=== PATIENT | male | born 1965 | race Caucasian/White ===

== ENCOUNTER → 2017-06-29 | Outpatient (CLI) | payer BC, SELFPAY | PROVIDERS: Visit Provider Physician Assistant | DX: E03.9 Hypothyroidism, unspecified (principal); R73.01 Impaired fasting glucose; I10 Essential (primary) hypertension; E78.2 Mixed hyperlipidemia | CPT/HCPCS: 36415; 80053; 80061; 83036; 84443 ==

== ENCOUNTER → 2017-07-28 07:58 | Outpatient (CLI) | payer BC, SELFPAY ==
[2017-07-28 09:42] LABS: Hemoglobin A1C 6.7 % (0.0-7.0)
[2017-07-28 09:57] LABS: Glucose,Fasting 135 mg/dL (60-105)
== END ==
PROVIDERS: PCP Physician Assistant; Visit Provider Physician Assistant
DX: R73.01 Impaired fasting glucose (principal)
CPT/HCPCS: 36415; 82947; 83036

== ENCOUNTER → 2017-12-29 08:21 | Outpatient (CLI) | payer BC, SELFPAY ==
[2017-12-29 09:09] LABS: Hemoglobin A1C 6.3 % (0.0-7.0)
[2017-12-29 09:50] LABS: Alanine Aminotransferase 37 U/L (12-78); Albumin Level 3.9 gm/dL (3.4-5.0); Albumin/Globulin Ratio 1.3 (1.1-1.8); Alkaline Phosphatase 90 U/L (46-116); Anion Gap 8.9 mEq/L (5-15); Aspartate Amino Transferase 33 U/L (15-37); Bilirubin,Total 1.3 mg/dL (0.2-1.0); Blood Urea Nitrogen 20 mg/dL (7-18); Calcium 8.9 mg/dL (8.5-10.1); Carbon Dioxide 30 mmol/L (21.0-32.0); Chloride 109 mmol/L (98-107); Chol/HDL Ratio 3.9 (1-3.5); Cholesterol 134 mg/dL (140-200); Creatinine,Serum 1.12 mg/dL (0.70-1.30); Estimated Glomerular Filt Rate 69 ml/min (>60); GFR (African American) 83 ML/MIN (>60); Globulin 2.9 gm/dl (1.3-3.2); Glucose 131 mg/dL (74-106); HDL Cholesterol 34 mg/dL (27-67); LDL Cholesterol 71 mg/dL (0-130); Potassium 4.9 mmoL/L (3.5-5.1); Sodium 143 mmol/L (136-145); Thyroid Stimulating Hormone 1.63 uIU/ml (0.358-3.740); Total Protein,Serum 6.8 gm/dL (6.4-8.2); Triglycerides 144 mg/dL (30-200); VLDL Cholesterol 29 mg/dL (0-40)
== END ==
PROVIDERS: Visit Provider Family Medicine
DX: E03.9 Hypothyroidism, unspecified (principal); I10 Essential (primary) hypertension; R73.01 Impaired fasting glucose
CPT/HCPCS: 36415; 80053; 80061; 83036; 84436; 84443

== ENCOUNTER → 2019-05-03 09:35 | Outpatient (CLI) | payer BC, SELFPAY ==
[2019-05-03 10:42] LABS: Hemoglobin A1C 8.9 % (0.0-7.0)
[2019-05-03 11:24] LABS: Alanine Aminotransferase 32 U/L (12-78); Albumin Level 3.9 gm/dL (3.4-5.0); Albumin/Globulin Ratio 1.3 (1.1-1.8); Alkaline Phosphatase 148 U/L (46-116); Anion Gap 11.8 mEq/L (5-15); Aspartate Amino Transferase 36 U/L (15-37); Bilirubin,Total 1.3 mg/dL (0.2-1.0); Blood Urea Nitrogen 16 mg/dL (7-18); Calcium 8.8 mg/dL (8.5-10.1); Carbon Dioxide 28 mmol/L (21.0-32.0); Chloride 102 mmol/L (98-107); Chol/HDL Ratio 4.1 (1-3.5); Cholesterol 147 mg/dL (140-200); Creatinine,Serum 1.07 mg/dL (0.70-1.30); Estimated Glomerular Filt Rate 72 ml/min (>60); Free T4 (Free Thyroxine) 1.05 ng/dl (0.76-1.46); GFR (African American) 87 ML/MIN (>60); Globulin 3.1 gm/dl (1.3-3.2); Glucose 189 mg/dL (74-106); HDL Cholesterol 36 mg/dL (27-67); LDL Cholesterol 77 mg/dL (0-130); Potassium 4.8 mmoL/L (3.5-5.1); Sodium 137 mmol/L (136-145); Triglycerides 171 mg/dL (30-200); VLDL Cholesterol 34 mg/dL (0-40)
== END ==
PROVIDERS: Visit Provider Family Medicine
DX: R73.01 Impaired fasting glucose (principal); E03.9 Hypothyroidism, unspecified; E78.2 Mixed hyperlipidemia; I10 Essential (primary) hypertension
CPT/HCPCS: 36415; 80053; 80061; 83036; 84439; 84443

== ENCOUNTER → 2019-09-17 06:11 | Outpatient (CLI) | payer BC, SELFPAY ==
--- NOTE | 2019-09-17 | CA_ITS ---
APPROVED REPORT Technologist: Sofiya Lane, Ht: 5 ft 10 in Wt: 230 lbs BSA: 2.21 m2 HR: 73 bpm BP: 124/71 mmHg Medical History Medical History: Diabetic ??? Noninsulin, HTN, Hyperlipidemia Medications: Lisinopril,,,,, Levothyroxine,,,,, Asa,,,,, Lipitor,,,,, SpirOLACTONE,,,,, BisOPROLOL,,,,, Allergies: No known drug allergies Cardiac Risk Factors: HTN, Hyperlipidemia, Diabetes (non-insulin), FHX of CAD Previous Cardiac Procedures: STENT 2011 Stress Test Details Test: LEXISCAN HR Resting HR: 86 bpm Max Heart Rate (APMHR): 167 bpm Max HR Achieved: 105 bpm Target HR (85% APMHR): 141 bpm % of APMHR: 62 Recovery HR: 95 bpm BP Resting BP: 124.0/71.0 mmHg Max BP: 134.0/76.0 mmHg Recovery BP: 123.0/72.0 mmHg ECG Resting ECG: NSR,RBBB,OLD ANTEROLATERAL CA Clinical Exercise duration: 04:03 min Highest Stage Achieved: Exercise capacity: 1.0 METs Stress ECG Conclusion DURING INFUSION OF LEXISCAN PATIENT HAD BRIEF SOA,MILD STOMACH DISCOMFORT AND MALAISE. NO CHEST PAIN. NO ARRHYTHMIAS/ECTOPY. NO SIGNIFICANT ST-T CHANGES. UNREMARKABLE LEXISCAN STRESS. MYOVIEW IMAGES REPORTED SEPARATELY. Electronically signed by : Jermaine Marley, 09/18/2019 08:56:02
--- NOTE | 2019-09-17 06:23 | NM_ITS ---
APPROVED REPORT Exam: Nuclear Stress Test Indication: Chest pain, CAD, HTN, High cholesterol, Former tobacco use, Family history Patient Location: Outpatient Stress Tech: Sissy Lane CA Tech:Lorna Glasgow, ARRT, RT (R)(N) Ht: 5 ft 10 in Wt: 230 lbs HR: 73 bpm BP: 124/71 mmHg BSA: 2.21 m2 BMI: 32.9 History: Chest pain, CAD, HTN, High cholesterol, Former tobacco use, Family history Procedure: Patient received a 0.4 mg of intravenous Lexiscan, resting heart rate 73 bpm, resting blood pressure 124/71 mmHg, with Lexiscan maximum heart rate achived was 101 bpm which is % of the maximum predicted heart rate and blood pressure was 113/65 mmHg. With Lexiscan, patient denied any complaint of chest pain. Cardiac Stress and Resting SPECT Images: Cardiac Stress and Resting SPECT images were obtained using technetium 99m Myoview 32.4 mCi stress and 10.24 mCi at rest. EF low at 32% with global hypokinesia Multiple fixed defects involving anterior wall apex, inferior wall consistent with multiple areas of infarction No reversible defects Conclusion: EF low at 32% with global hypokinesia Multiple fixed defects involving anterior wall apex, inferior wall consistent with multiple areas of infarction No reversible defects Electronically signed by : Mariano Wray MD 09/18/2019 14:53:56
--- NOTE | 2019-09-17 07:08 | HMH.ITSHM ---
Current Home Medications as stated by this patient Miguel Espinoza or medical representative. []SPIRONOLACTONE MEDROL LISINOPRIL LEVOTHYROXINE BISOPROLOL ATORVASTATIN ASA FLONASE AMOXICILLIN
== END ==
PROVIDERS: PCP Family Medicine; Visit Provider Family Medicine
DX: R07.2 Precordial pain (principal)
CPT/HCPCS: 78452; 93017; A9502; J2785

== ENCOUNTER → 2019-10-17 09:56 | Outpatient (CLI) | payer BC, SELFPAY ==
--- NOTE | 2019-10-17 10:06 | CA_ITS ---
APPROVED REPORT EXAM: Comprehensive 2D, Doppler, and color-flow Echocardiogram Home Demonstrator: Lydia Hernandez RT(R) Ht: 5 ft 10 in Wt: 236lbs BSA: 2.24 BP: 126/22 mmHg Indications: CM, CHF, limited echo with definity to assess wall motion Left Ventricle Left atrium is mildly enlarged, left ventricle is mildly dilated, there is severe reduced left ventricular systolic function, visually estimated ejection fraction of 30%, there is marked hypo-to akinesis involving mid to distal septum, anterior, anterior apical, apex and inferior apical wall. There is no left ventricular thrombus seen, Definity contrast was utilized to delineate the endocardial surfaces. Right Ventricle Right atrium right ventricular normal size and contractility. Aortic Valve Aortic valve is minimally thickened and fibrosed. Mitral Valve Mitral valve is grossly normal. Tricuspid Valve Tricuspid valve is poorly visualized. Pulmonic Valve Pulmonic valve is poorly visualized. Great Vessels Aortic root is normal size. Pericardium No significant pericardial effusion noted. Conclusion 1. Limited study with Definity contrast done to evaluate left ventricular systolic function 2. Mildly enlarged left atrium, mildly dilated left ventricle, severely soft ventricular systolic function with multiple segmental wall motion abnormality described above, visually estimated ejection fraction is 30%, there is no left ventricular thrombus seen. 3. No significant pericardial effusion noted. Electronically signed by : Sánchez Mujica, 10/17/2019 11:08:15
== END ==
PROVIDERS: PCP Family Medicine; Visit Provider Physician Assistant
DX: I25.10 Atherosclerotic heart disease of native coronary artery without angina pectoris (principal); I25.2 Old myocardial infarction; I51.9 Heart disease, unspecified; R94.30 Abnormal result of cardiovascular function study, unspecified; I10 Essential (primary) hypertension; E11.9 Type 2 diabetes mellitus without complications; Z79.84 Long term (current) use of oral hypoglycemic drugs
CPT/HCPCS: 93308; Q9957

== ENCOUNTER → 2020-01-02 07:48 | Outpatient (CLI) | payer BC, SELFPAY | PROVIDERS: PCP Family Medicine; Visit Provider Urology | DX: R94.31 Abnormal electrocardiogram [ECG] [EKG] (principal); I50.20 Unspecified systolic (congestive) heart failure; I25.5 Ischemic cardiomyopathy; I25.10 Atherosclerotic heart disease of native coronary artery without angina pectoris; I10 Essential (primary) hypertension; E78.5 Hyperlipidemia, unspecified; E11.9 Type 2 diabetes mellitus without complications; Z79.84 Long term (current) use of oral hypoglycemic drugs | CPT/HCPCS: 93308; Q9957 ==

== ENCOUNTER → 2020-03-06 09:04 | Outpatient (CLI) | payer BC, SELFPAY ==
[2020-03-06 10:22] LABS: Alanine Aminotransferase 19 U/L (12-78); Albumin Level 4.3 g/dl (3.5-5.0); Albumin/Globulin Ratio 1.6 (1.1-1.8); Alkaline Phosphatase 132 U/L (38-126); Anion Gap 13.1 mEq/L (5-15); Aspartate Amino Transferase 35 U/L (17-59); Bilirubin,Total 1.6 mg/dl (0.2-1.3); Blood Urea Nitrogen 18 mg/dl (9-20); Calcium 9.7 mg/dl (8.4-10.2); Carbon Dioxide 27 mmol/L (22.0-30.0); Chloride 105 mmol/L (98-107); Chol/HDL Ratio 3.6 (1-3.5); Cholesterol 139 mg/dl (140-200); Estimated Glomerular Filt Rate 78 ml/min (>60); GFR (African American) 94 ML/MIN (>60); Globulin 2.7 g/dL (1.3-3.2); Glucose 124 mg/dl (74-100); HDL Cholesterol 39 mg/dl (40-60); Potassium 5.1 mmoL/L (3.5-5.1); Sodium 140 mmol/L (136-145); Triglycerides 163 mg/dl (30-150); VLDL Cholesterol 33 mg/dL (0-40)
[2020-03-06 10:33] LABS: Direct LDL Cholesterol 78.13 mg/dL (100-129)
[2020-03-06 10:53] LABS: Prostate Specific Ag Screen 0.5 ng/ml (0.0-4.0); Thyroid Stimulating Hormone 0.02 uIU/mL (0.465-4.68)
== END ==
PROVIDERS: Visit Provider Family Medicine
DX: E11.9 Type 2 diabetes mellitus without complications (principal); E78.5 Hyperlipidemia, unspecified; E03.9 Hypothyroidism, unspecified; Z12.5 Encounter for screening for malignant neoplasm of prostate; Z79.84 Long term (current) use of oral hypoglycemic drugs
CPT/HCPCS: 36415; 80053; 80061; 84443; G0103

== ENCOUNTER → 2020-06-29 16:29 | Outpatient (CLI) | payer BC, SELFPAY ==
--- NOTE | 2020-06-29 16:33 | XR_ITS ---
PROCEDURE: XR SHOULDER LT MIN 2V CLINICAL INDICATION: PAIN IN LT SHOULDER COMPARISON: Lower chest FINDINGS: The clavicle is intact. There is minor degenerate change of the AC joint. The humeral head and glenoid appear normal. There is no significant subacromial stenosis. There are no soft tissue calcifications. The visualized portion of the left hemithorax shows what may be a pneumonic infiltrate in the left perihilar region left lower lobe versus chronic changes but not adequately evaluated on this limited view of the chest. IMPRESSION: Minor degenerate change AC joint otherwise negative left shoulder, consider follow-up PA and lateral chest for additional evaluation of pneumonia versus chronic changes left lower chest Dictated by: Dr. Bob Hardin MD 06/29/2020 17:09 Dr. Bob Hardin MD in [place] 06/29/2020 17:09
== END ==
PROVIDERS: PCP Family Medicine; Visit Provider Family Medicine
DX: M25.512 Pain in left shoulder (principal)
CPT/HCPCS: 73030

== ENCOUNTER → 2020-09-04 11:13 | Outpatient (CLI) | payer BC, SELFPAY ==
[2020-09-04 12:12] LABS: Hemoglobin A1C 7.2 % (4.0-6.0)
[2020-09-04 12:39] LABS: Chloride 105 mmol/L (98-107); Potassium 4.9 mmoL/L (3.5-5.1); Sodium 139 mmol/L (136-145)
[2020-09-04 12:41] LABS: Blood Urea Nitrogen 19 mg/dl (9-20); Estimated Glomerular Filt Rate 78 ml/min (>60); GFR (African American) 94 ML/MIN (>60)
[2020-09-04 12:42] LABS: Alanine Aminotransferase 22 U/L (12-78); Albumin Level 4.8 g/dl (3.5-5.0); Albumin/Globulin Ratio 1.9 (1.1-1.8); Alkaline Phosphatase 123 U/L (38-126); Anion Gap 11.9 mEq/L (5-15); Aspartate Amino Transferase 36 U/L (17-59); Bilirubin,Total 1.2 mg/dl (0.2-1.3); Carbon Dioxide 27 mmol/L (22.0-30.0); Cholesterol 148 mg/dl (140-200); Globulin 2.5 g/dL (1.3-3.2); Total Protein,Serum 7.3 g/dl (6.3-8.2); Triglycerides 273 mg/dl (30-150); VLDL Cholesterol 55 mg/dL (0-40)
[2020-09-04 12:43] LABS: Calcium 10.1 mg/dl (8.4-10.2); Chol/HDL Ratio 3.7 (1-3.5); Glucose 126 mg/dl (74-100); HDL Cholesterol 40 mg/dl (40-60)
[2020-09-04 12:54] LABS: Direct LDL Cholesterol 67.07 mg/dL (100-129)
[2020-09-04 13:13] LABS: Thyroid Stimulating Hormone 1.14 uIU/mL (0.465-4.68)
== END ==
PROVIDERS: Visit Provider Family Medicine
DX: I25.10 Atherosclerotic heart disease of native coronary artery without angina pectoris (principal); E78.5 Hyperlipidemia, unspecified; E03.9 Hypothyroidism, unspecified; E11.9 Type 2 diabetes mellitus without complications; Z79.84 Long term (current) use of oral hypoglycemic drugs
CPT/HCPCS: 36415; 80053; 80061; 83036; 84443

== ENCOUNTER → 2021-05-31 15:14 | Outpatient (CLI) | payer BC, SELFPAY ==
--- NOTE | 2021-05-31 15:15 | CA_ITS ---
APPROVED REPORT EXAM: Comprehensive 2D, Doppler, and color-flow Echocardiogram Seasoning Sprayer: Lydia Hernandez RT(R) Ht: 5 ft 10 in Wt: 236lbs BSA: 2.24 BP: 123/75 mmHg Indications: ex smoker, HTN, DM, hyperlipidemia, hx CM, CAD, Abn EKG, hx MN Echo Enhancing Agent Indication: Endocardial border delineation Agent(s) / Amount(s) Used: Definity 2 cc 2D Dimensions LVOT 2.13 cm (M/F) 1.5-2.5 M-Mode Dimensions RVDd 2.97 cm (0.9-2.6) LA Diam 3.15 cm (1.9-4.0) LVDd 6.70 cm (3.5-5.7) Ao Diam 2.77 cm (2.0-3.7) LVDs 5.35 cm (3.5-5.7) IVSd 1.02 cm (0.6-1.1) PWd 0.98 cm (0.6-1.1) EF (Teich) 40.20% FS 20.10% EDV (Teich) 231.40 mL ESV (Teich) 138.30 mL LV Diastology E Decel Time 153.00 (160-240 msec) E/A Ratio 0.7 MED E' 5.90 (< 7 cm/sec) E'/MED E' Ratio 11.12 (>14) LAT E' 10.10 (<10 cm/sec) E/LAT E' Ratio 6.50 (>14) Mitral Valve MV E Max Adilson. 66.00 (40-130 cm/s) MV A Velocity 96.00 (40-130 cm/s) E/A Ratio 0.68 MV Decel. Time 153.00 (160-240 ms) MV PHT 45.00 ms Left Ventricle Technically difficult study because of the patient fact in poor acoustic windows, Definity contrast was utilized to delineate the endocardial surfaces. Left atrium is mildly enlarged, left ventricle is normal size, mild concentric left ventricular hypertrophy, visually estimated ejection fraction approximately 40%, there is marked hypokinesis involving mid to distal septum anterior and anterior apical wall, there is no left ventricular thrombus seen. Grade 1 diastolic dysfunction seen without tissue Doppler evidence of raise left atrial pressure. Right Ventricle Right atrium and right ventricle are normal size and contractility. Aortic Valve Aortic valve is thickened and calcified without Doppler evidence of aortic stenosis or aortic insufficiency. Mitral Valve Mitral valve is grossly normal, there is mild mitral regurgitation. Tricuspid Valve Tricuspid valve grossly normal, there is mild tricuspid regurgitation, tricuspid regurgitation jet force is inadequate for calculation of the right ventricular systolic pressure. Pulmonic Valve Pulmonic valve is poorly visualized. Great Vessels Aortic root is normal size. Inferior vena cava is poorly visualized. Pericardium No significant pericardial effusion noted. Conclusion 1. Mildly enlarged left atrium, normal left ventricular size, mild concentric left ventricular hypertrophy, visually estimated ejection fraction 40% with segmental wall motion abnormality described above, there is no left ventricular thrombus seen, grade 1 diastolic dysfunction seen without tissue Doppler evidence of raise left atrial pressure. 2. Mild mitral and tricuspid regurgitation. 3. No significant pericardial effusion noted. Electronically signed by : Sánchez Mujica MD 05/31/2021 20:15:27
== END ==
PROVIDERS: PCP Family Medicine; Visit Provider Physician Assistant
DX: I25.5 Ischemic cardiomyopathy (principal); I25.10 Atherosclerotic heart disease of native coronary artery without angina pectoris; I10 Essential (primary) hypertension; I25.2 Old myocardial infarction; I50.22 Chronic systolic (congestive) heart failure; I51.9 Heart disease, unspecified; E11.59 Type 2 diabetes mellitus with other circulatory complications; E78.2 Mixed hyperlipidemia; R94.31 Abnormal electrocardiogram [ECG] [EKG]; Z87.891 Personal history of nicotine dependence
CPT/HCPCS: 93306; Q9957

== ENCOUNTER 2021-07-25 17:28 | Emergency (ER) | payer BC, SELFPAY ==
[2021-07-25 19:37] VITALS: BP 140/90; PULSE 94; RESP 20; TEMP 36.9; O2SAT 98; BMI 35.4
[2021-07-25 19:41] VITALS: BP 128/72; PULSE 95; RESP 20; TEMP 36.9; O2SAT 98
--- NOTE | 2021-07-25 19:42 | HMH.EDUTC ---
[facility] [place] Disposition Clinical Impression: Sinusitis Qualifiers: Sinusitis location: unspecified location Chronicity: unspecified Qualified Code(s): J32.9 - Chronic sinusitis, unspecified Disposition: Home, Self-Care Condition on Discharge: Good Instructions: Sinusitis, DI for Sinusitis Additional Instructions: Start oraln steriods tomorrow Take medication as prescribed Return if needed Straight to ER if any life threatening symptoms Prescriptions: methylPREDNISolone [Medrol 4mg tab] 4 mg PO DIRECTED #21 tab Transmission Status: Pending to [facility] Azithromycin [Z-Simón 250mg Tab] 250 mg PO DIRECTED #6 tab Transmission Status: Pending to [facility] Referrals: Alfredo Joyce MD [Primary Care Provider] - As needed Time of Disposition: 19:50 Medical Decision Making - Freddy Inquiry Pt receiving controlled substance: No Freddy was queried for this patient: No Vital Signs: 07/25/21 19:37 Temperature 98.4 F Temperature Source Oral Pulse Rate [Apical] 94 H Respiratory Rate 20 Blood Pressure [Right Arm] 140/90 Blood Pressure Mean [Right Arm] 106 Blood Pressure Source [Right Arm] Automatic Cuff Blood Pressure Position [Right Arm] Sitting 02 Sat by Pulse Oximetry 98 Oxygen Delivery Method Room Air Medical Decision Narrative: Patient states that he has taken azithromycin and Medrol int he past without reaction or complications [facility] HPI - General Stated complaint: poss sinus inf, benson Time Seen by Provider: 07/25/21 19:42 Mode of Arrival: Ambulatory Source of Information: Patient Limitations: No Limitations Description of Symptoms (Recalled from Triage Doc. by RN): cough, congestion sinus pressure HEENT Symptoms (Recalled from RN notes): Yes Resp Symptoms (Recalled from RN notes): Yes Skin Symptoms (Recalled from RN notes): No MS Symptoms (Recalled from RN notes): No Functional Status (Recalled from RN notes): na - History of Present Illness Provider Complaint: Patient states that he has been having sinus pain and pressure for over a week states that he has tried OTC medication but not helped much States that he gets this every year and sees his PCP and gets a zpack and steriods to paulo it up Denies exposure to COVID - Related Data Home Medications Medication Instructions Recorded Confirmed aspirin 81 mg tablet,delayed 81 mg PO DAILY 08/27/18 06/06/21 release spironolactone 25 mg tablet 25 mg PO DAILY 08/27/18 06/06/21 Fluticasone Propionate [Flonase 1 spray INTRANASAL DAILY 06/29/19 06/06/21 Allergy Relief NS] levothyroxine 125 mcg tablet 150 mcg PO DAILY tab 11/18/19 06/06/21 lisinopril 10 mg tablet 10 mg PO DAILY tab 09/28/20 06/06/21 pantoprazole 40 mg tablet,delayed 40 mg PO DAILY tab 12/06/20 06/06/21 release metformin 850 mg tablet 850 mg PO DAILY tab 06/06/21 06/06/21 Previous Rx's Medication Instructions Recorded ticagrelor 90 mg tablet 90 mg PO BID #180 tab 11/21/19 atorvastatin 80 mg tablet 80 mg PO DAILY #90 tab 12/23/19 bisoprolol fumarate 5 mg tablet 5 mg PO DAILY #90 tab 09/28/20 Azithromycin [Z-Simón 250mg Tab] 250 mg PO DIRECTED #6 tab 07/25/21 methylPREDNISolone [Medrol 4mg 4 mg PO DIRECTED #21 tab 07/25/21 tab] Allergies Allergy/AdvReac Type Severity Reaction Status Date / Time No Known Allergies Allergy Verified 06/06/21 14:21 - Worker's Comp Is this a Worker's Comp case?: No H History - Hepatitis A Screen Drug use history?: No High risk sexual behaviors?: No History of sexually transmitted infection?: No Currently employed?: No Childcare worker?: No Do you have indoor plumbing?: Yes Do you have electricity?: Yes Attestation statement:: This patient has been screened for Hepatitis A risk factors. I have reviewed the patient's past medical history: Yes Medical History: Reports:: Cardiomyopathy, Coronary Artery Disease, Diabetes Mellitus Type 2, Hyperlipidemia, H
== END 2021-07-25 19:56 | disposition home or self-care (01) ==
PROVIDERS: Emergency Provider Nurse Practitioner Family; PCP Family Medicine
DX: J32.9 Chronic sinusitis, unspecified (principal); E03.9 Hypothyroidism, unspecified; E11.9 Type 2 diabetes mellitus without complications; E78.5 Hyperlipidemia, unspecified; I10 Essential (primary) hypertension; I25.2 Old myocardial infarction; Z79.899 Other long term (current) drug therapy
CPT/HCPCS: 96372; 99202; G0463

== ENCOUNTER → 2021-11-18 06:42 | Outpatient (CLI) | payer BC, SELFPAY ==
[2021-11-18 08:05] LABS: Alanine Aminotransferase 31 U/L (12-78); Albumin Level 4.1 g/dl (3.5-5.0); Albumin/Globulin Ratio 1.9 (1.1-1.8); Alkaline Phosphatase 127 U/L (38-126); Anion Gap 9.9 mEq/L (5-15); Aspartate Amino Transferase 38 U/L (17-59); Bilirubin,Total 0.9 mg/dl (0.2-1.3); Blood Urea Nitrogen 13 mg/dl (9-20); Calcium 9.1 mg/dl (8.4-10.2); Carbon Dioxide 28 mmol/L (22.0-30.0); Chloride 104 mmol/L (98-107); Chol/HDL Ratio 4.3 (1-3.5); Cholesterol 132 mg/dl (140-200); Estimated Glomerular Filt Rate 88 ml/min (>60); GFR (African American) 106 ML/MIN (>60); Globulin 2.2 g/dL (1.3-3.2); Glucose 215 mg/dl (74-100); HDL Cholesterol 31 mg/dl (40-60); Potassium 4.9 mmoL/L (3.5-5.1); Sodium 137 mmol/L (136-145); Total Protein,Serum 6.3 g/dl (6.3-8.2); Triglycerides 208 mg/dl (30-150); VLDL Cholesterol 42 mg/dL (0-40)
[2021-11-18 08:14] LABS: Hemoglobin A1C 8.4 % (4.0-6.0)
[2021-11-18 08:15] LABS: Direct LDL Cholesterol 66.18 mg/dL (100-129)
[2021-11-18 08:35] LABS: Prostate Specific Ag Screen 0.4 ng/ml (0.0-4.0); Thyroid Stimulating Hormone 1.45 uIU/mL (0.465-4.68)
== END ==
PROVIDERS: PCP Family Medicine; Visit Provider Family Medicine
DX: E11.9 Type 2 diabetes mellitus without complications (principal); E03.9 Hypothyroidism, unspecified; I10 Essential (primary) hypertension; E78.2 Mixed hyperlipidemia; Z12.5 Encounter for screening for malignant neoplasm of prostate
CPT/HCPCS: 36415; 80053; 80061; 83036; 84443; G0103

== ENCOUNTER → 2022-08-26 08:53 | Outpatient (CLI) | payer BC, SELFPAY ==
[2022-08-26 10:11] LABS: Hemoglobin A1C 6.8 % (4.0-6.0)
[2022-08-26 10:16] LABS: Alanine Aminotransferase 24 U/L (12-78); Albumin Level 4.5 g/dl (3.5-5.0); Albumin/Globulin Ratio 1.8 (1.1-1.8); Alkaline Phosphatase 132 U/L (38-126); Anion Gap 7.6 mEq/L (5-15); Aspartate Amino Transferase 38 U/L (17-59); Bilirubin,Total 1.3 mg/dl (0.2-1.3); Blood Urea Nitrogen 19 mg/dl (9-20); Calcium 9.2 mg/dl (8.4-10.2); Carbon Dioxide 26 mmol/L (22.0-30.0); Chloride 108 mmol/L (98-107); Chol/HDL Ratio 4.7 (1-3.5); Cholesterol 132 mg/dl (140-200); Estimated Glomerular Filt Rate 69 ml/min (>60); GFR (African American) 84 ML/MIN (>60); Globulin 2.5 g/dL (1.3-3.2); Glucose 155 mg/dl (74-100); HDL Cholesterol 28 mg/dl (40-60); Potassium 4.6 mmoL/L (3.5-5.1); Sodium 137 mmol/L (136-145)
[2022-08-26 10:27] LABS: Direct LDL Cholesterol 59.95 mg/dL (100-129); Triglycerides 418 mg/dl (30-150)
[2022-08-26 10:49] LABS: Thyroid Stimulating Hormone 0.51 uIU/mL (0.465-4.68)
== END ==
PROVIDERS: PCP Family Medicine; Visit Provider Family Medicine
DX: E03.9 Hypothyroidism, unspecified (principal); E78.5 Hyperlipidemia, unspecified; E11.9 Type 2 diabetes mellitus without complications; Z79.84 Long term (current) use of oral hypoglycemic drugs
CPT/HCPCS: 36415; 80053; 80061; 83036; 84443

== ENCOUNTER 2022-09-04 10:43 | Emergency (ER) | payer BC, SELFPAY ==
[2022-09-04 11:15] VITALS: BP 142/73; PULSE 82; RESP 20; TEMP 37.5; O2SAT 95; BMI 34.4
--- NOTE | 2022-09-04 11:43 | EXP.UTC ---
Discharge Plan Disposition Patient Disposition: Home, Self-Care Condition: Good Prescriptions Prescriptions: New azithromycin [Zithromax Z-Simón] 250 mg tablet See Rx Instructions .ROUTE .COMPLEX 5 Days Qty: 6 0RF Rx Instructions: For 250 mg dose pack: take 500 mg today (day 1), then 250 mg for 4 days (days 2-5) benzonatate 100 mg capsule 100 mg PO TID PRN (Reason: cough) Qty: 15 0RF No Action lisinopril 10 mg tablet 10 mg PO DAILY metformin 850 mg tablet 850 mg PO DAILY aspirin [Adult Low Dose Aspirin] 81 mg tablet,delayed release (DR/EC) 81 mg PO DAILY levothyroxine [Synthroid] 125 mcg tablet 150 mcg PO DAILY ticagrelor 90 mg tablet 90 mg PO BID Qty: 180 3RF Rx Instructions: NEW MED-STARTED 10/02/2019 Xigduo XR 10-1,000 mg tablet, IR - ER, biphasic 24hr 1 tab PO DAILY atorvastatin 80 mg tablet 80 mg PO DAILY bisoprolol fumarate 5 mg tablet See Rx Instructions .ROUTE .COMPLEX Rx Instructions: TAKE 1 TABLET DAILY pantoprazole 40 mg tablet,delayed release (DR/EC) See Rx Instructions .ROUTE .COMPLEX Rx Instructions: TAKE 1 TABLET DAILY Referrals Follow up/Referrals: Alfredo Joyce MD [Primary Care Provider] - See instructions Activity Restrictions/Add. Instructions Additional Instructions/Restrictions: *Monitor Temp, Over the counter Motrin or Tylenol as directed/as needed Tylenol every 4 hours and Motrin every 6 hours (as long as your family doctor has told you that you can take it) for fever or pain. and straight to ER if unable to lower temp less than 101.0 after medication given *Warm salt water gargles may help to soothe the throat *Throat Lozenges? *Warm fluids like tea with honey may help to soothe the throat? *Sleep elevated *Humidifier/Vaporizer Take medication as prescribed Follow up IMMEDIATELY for new or worsening symptoms or no Noticeable improvement over the next 48-72 hours. 911 for difficulty breathing or swallowing Clinical Impressions Clinical Impression: Sinusitis Qualifiers: Sinusitis location: unspecified location Chronicity: unspecified Qualified Code(s): J32.9 - Chronic sinusitis, unspecified Instructions Patient Instructions: Sinusitis, DI for Sinusitis Discharge ED Provider: Anay Schwarz [facility] [place] HPI General Stated complaint: Congestion,Cough Mode of Arrival: Ambulatory Source of Information: Patient Limitations: No Limitations Time Seen by Provider: 09/04/22 11:43 Description of Symptoms (Recalled from Triage Doc. by RN): sinus or allergies made him come HEENT Symptoms (Recalled from RN notes): Yes Resp Symptoms (Recalled from RN notes): No Skin Symptoms (Recalled from RN notes): No MS Symptoms (Recalled from RN notes): No Functional Status (Recalled from RN notes): n/a History of Present Illness Provider Complaint: Patient states that he gets sinus issues about this time every year and if not treated it turns into bronchitis States that he has been having sinus pressure and congestion for over a week and thought it was allergies at first but has continued to get worse Related Data Home Medications Medication Instructions Recorded Confirmed aspirin 81 mg tablet,delayed 81 mg PO DAILY . 08/27/18 09/04/22 release (Adult Low Dose Aspirin) levothyroxine 125 mcg tablet 150 mcg PO DAILY thyroid 11/18/19 09/04/22 (Synthroid) lisinopril 10 mg tablet 10 mg PO DAILY . 09/28/20 09/04/22 metformin 850 mg tablet 850 mg PO DAILY Diabetes 06/06/21 09/04/22 atorvastatin 80 mg tablet 80 mg PO DAILY High cholesterol 09/04/22 09/04/22 bisoprolol fumarate 5 mg tablet See Rx Instructions .Route 09/04/22 09/04/22 .COMPLEX . dapagliflozin 10 mg-metformin ER 1 tab PO DAILY . 09/04/22 09/04/22 1,000 mg tablet,extended release 24hr (Xigduo XR) pantoprazole 40 mg tablet,delayed See Rx Instructions .Route 09/04/22 09/04/22 release .COMPLEX GERD Pre
[2022-09-04 12:21] VITALS: BP 142/73; PULSE 82; RESP 20; TEMP 37.5; O2SAT 95
== END 2022-09-04 12:10 | disposition home or self-care (01) ==
PROVIDERS: Emergency Provider Nurse Practitioner; PCP Family Medicine
DX: J32.9 Chronic sinusitis, unspecified (principal)
CPT/HCPCS: 96372; 99212; 99213; G0463

== ENCOUNTER → 2023-06-30 09:37 | Outpatient (CLI) | payer BC, SELFPAY ==
[2023-06-30 10:15] LABS: Chloride 103 mmol/L (98-107); Potassium 4.7 mmoL/L (3.5-5.1); Sodium 135 mmol/L (136-145)
[2023-06-30 10:18] LABS: Alanine Aminotransferase 31 U/L (12-78); Albumin Level 4.4 g/dl (3.5-5.0); Albumin/Globulin Ratio 1.7 (1.1-1.8); Alkaline Phosphatase 121 U/L (38-126); Anion Gap 14.7 mEq/L (5-15); Aspartate Amino Transferase 39 U/L (17-59); Bilirubin,Total 1.3 mg/dl (0.2-1.3); Blood Urea Nitrogen 20 mg/dl (9-20); Calcium 8.7 mg/dl (8.4-10.2); Carbon Dioxide 22 mmol/L (22.0-30.0); Chol/HDL Ratio 5.1 (1-3.5); Cholesterol 138 mg/dl (140-200); Estimated Glomerular Filt Rate 69 ml/min (>60); GFR (African American) 83 ML/MIN (>60); Globulin 2.6 g/dL (1.3-3.2); Glucose 148 mg/dl (74-100); HDL Cholesterol 27 mg/dl (40-60); Triglycerides 304 mg/dl (30-150); VLDL Cholesterol 61 mg/dL (0-40)
[2023-06-30 10:21] LABS: Hemoglobin A1C 6.9 % (4.0-6.0)
[2023-06-30 10:30] LABS: Direct LDL Cholesterol 73.02 mg/dL (100-129)
[2023-06-30 10:49] LABS: Thyroid Stimulating Hormone 1.07 uIU/mL (0.465-4.68)
[2023-06-30 10:57] LABS: Prostate Specific Ag Screen 0.5 ng/ml (0.0-4.0)
== END ==
LOC: LAB 09:38
PROVIDERS: PCP Family Medicine; Visit Provider Family Medicine
DX: E03.9 Hypothyroidism, unspecified (principal); E78.5 Hyperlipidemia, unspecified; E11.9 Type 2 diabetes mellitus without complications; Z79.84 Long term (current) use of oral hypoglycemic drugs; Z12.5 Encounter for screening for malignant neoplasm of prostate
CPT/HCPCS: 36415; 80053; 80061; 83036; 84443; G0103

== ENCOUNTER 2023-07-23 07:35 | Outpatient (CLI) | payer BC, SELFPAY ==
--- NOTE | 2023-07-23 07:41 | CA_ITS ---
APPROVED REPORT EXAM: Comprehensive 2D, Doppler, and color-flow Echocardiogram Database Coordinator: Yola Parish CRT Ht: 5 ft 10 in Wt: 246lbs BSA: 2.28 BP: 141/68 mmHg Indications: Congestive Heart Failure, stents, cad, TDE, obesity M-Mode Dimensions RVDd 3.44 cm (0.9-2.6) LA Diam 3.00 cm (1.9-4.0) LVDd 4.93 cm (3.5-5.7) LVDs 3.44 cm (3.5-5.7) IVSd 1.83 cm (0.6-1.1) PWd 0.72 cm (0.6-1.1) EF (Teich) 57.30% FS 30.20% EDV (Teich) 114.40 mL TAPSE 1.96 (<1.7) ESV (Teich) 48.80 mL LV Diastology E Decel Time 193 (160-240 msec) E/A Ratio 0.87 MED A' 10.20 cm/s LAT A' 10.80 cm/s Aortic Valve AO Peak GR. 4.30 mmHg Mitral Valve MV E Max Adilson. 85.0 (40-130 cm/s) MV A Velocity 98.0 (40-130 cm/s) E/A Ratio 0.87 MV PHT 57.0 ms Pulmonary Valve PV Peak Velocity 108.0 (50-150 cm/s) Tricuspid Valve TR P. Velocity 168.00 cm/s RAP Estimate 10.00 mmHg RVSP 21.30 mmHg Left Ventricle The left ventricle is normal size. 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 Left ventricular systolic function is mild to moderately decreased. There is increased LV wall thickness. There is mild to moderate global hypokinesis present. There is moderate hypokinesis of the anteroseptal LV wall. There is severe hypokinesis of the apical LV wall. Grade 1 diastolic dysfunction is present. LVEF is 40%. Right Ventricle The right ventricle is normal size. The right ventricular systolic function is normal. Atria The left atrium size is normal. The right atrium size is normal. There is no Doppler evidence of interatrial shunt. Aortic Valve The aortic valve is mildly thickened. There is no aortic valvular stenosis. No aortic regurgitation is present. Mitral Valve The mitral valve leaflets are mildly thickened. No evidence of mitral valve stenosis. Trace mitral regurgitation. Tricuspid Valve The tricuspid valve leaflets are thin and pliable. Trace tricuspid regurgitation. There is insufficient TR jet to estimate RVSP. Pulmonic Valve The pulmonary valve is normal in structure. Trace pulmonic regurgitation. Great Vessels The aortic root is normal in size. The ascending aorta is normal in size. IVC is normal in size and collapses >50% with inspiration. Pericardium There is no pericardial effusion. Other Information Study Quality: Technically Difficult Conclusion Technically difficult study due to poor acoustic windows. Mild to moderate reduction in LV systolic function (LVEF 40%). 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 Mild to moderate global hypokinesis present. There is moderate hypokinesis of the anteroseptal LV wall. There is severe hypokinesis of the apical LV wall. No significant valvular stenosis or regurgitation. Of note, evaluation for apical LV thrombus and confirmation of presence of apical LV aneurysm cannot be made due to absence of ultrasound enhancing agent. It is recommended that future TTE evaluations are performed with administration of ultrasound enhancing agent. Electronically signed by : Elisa Michael MD 07/24/2023 11:38:54
== END 2023-07-23 23:59 ==
LOC: RT 07:38
PROVIDERS: PCP Family Medicine; Visit Provider Physician Assistant
DX: I25.10 Atherosclerotic heart disease of native coronary artery without angina pectoris (principal); R94.31 Abnormal electrocardiogram [ECG] [EKG]; I25.5 Ischemic cardiomyopathy
CPT/HCPCS: 93306

== ENCOUNTER 2024-02-24 08:52 | Outpatient (CLI) | payer BC, SELFPAY ==
[2024-02-24 10:00] LABS: Alanine Aminotransferase 24 U/L (12-78); Albumin Level 4.2 g/dl (3.5-5.0); Albumin/Globulin Ratio 1.6 (1.1-1.8); Alkaline Phosphatase 105 U/L (38-126); Anion Gap 10.2 mEq/L (5-15); Aspartate Amino Transferase 29 U/L (17-59); Bilirubin,Total 1.4 mg/dl (0.2-1.3); Blood Urea Nitrogen 21 mg/dl (9-20); Calcium 9.4 mg/dl (8.4-10.2); Carbon Dioxide 24 mmol/L (22.0-30.0); Chloride 108 mmol/L (98-107); Chol/HDL Ratio 3.8 (1-3.5); Cholesterol 138 mg/dl (140-200); Estimated Glomerular Filt Rate 77 ml/min (>60); GFR (African American) 93 ML/MIN (>60); Globulin 2.7 g/dL (1.3-3.2); Glucose 129 mg/dl (74-100); HDL Cholesterol 36 mg/dl (40-60); Potassium 4.2 mmoL/L (3.5-5.1); Sodium 138 mmol/L (136-145); Total Protein,Serum 6.9 g/dl (6.3-8.2); Triglycerides 297 mg/dl (30-150); VLDL Cholesterol 59 mg/dL (0-40)
[2024-02-24 10:11] LABS: Direct LDL Cholesterol 61.04 mg/dL (100-129)
[2024-02-24 10:31] LABS: Thyroid Stimulating Hormone 1.07 uIU/mL (0.465-4.68)
[2024-02-24 11:11] LABS: Hemoglobin A1C 6.4 % (4.0-6.0)
== END 2024-02-24 23:59 | disposition home or self-care (01) ==
LOC: LAB 08:53
PROVIDERS: PCP Family Medicine; Visit Provider Family Medicine
DX: I10 Essential (primary) hypertension (principal); E03.9 Hypothyroidism, unspecified; E11.9 Type 2 diabetes mellitus without complications
CPT/HCPCS: 36415; 80053; 80061; 83036; 84443

== ENCOUNTER 2025-02-14 07:45 | Outpatient (CLI) | payer BC, SELFPAY ==
--- OUTSIDE RECORDS SUMMARY | 2024-06-09 11:30 | XMS_ITS ---
[facility] Organization [facility] Address [address] [place] [id number] Care Team Providers Care Clinical Faculty Name Role Phone Vijay Vinson Primary Care Provider [phone] Ari Jonesine Unavailable [phone] Allergies No Known Allergies Results Component Value Reference Range Notes Influenza Screen (in house) Reviewed date:06/09/2024 07:43:35 PM Interpretation:neg Performing Lab: Notes/Report: neg results neg CBC Fingerstick (in house) Reviewed date:06/09/2024 07:43:06 PM Interpretation: Performing Lab: Notes/Report: wbc 8.9 3.5 - 10 lym 40.8 15 - 50 mid 7.5 2 - 15 gran 51.7 35 - 80 rbc 5.39 3.5 - 5.5 hgb 15.3 11.5 - 16.5 hct 44.2 35 - 55 mcv 82.0 75 - 100 mch 28.5 25 - 35 mchc 34.7 31 - 38 plat 214 100 - 400 Covid test (in house) Reviewed date:06/09/2024 07:43:21 PM Interpretation:neg Performing Lab: Notes/Report: neg Result: neg REASON FOR VISIT cough & congestion Medications Medication SIG (Take, Route, Frequency, Duration) Notes Start Date End Date Status Cefuroxime Axetil 500 MG 1 tablet Orally every 12 hrs; Duration: 7 day(s) 06/09/2024 Active Xigduo XR 10-1000 MG 1 tab(s) orally onc e a day (in the morning); Duration: 90 days Active Atorvastatin Calcium 40 MG 1 tab(s) oral ly once a day (at bedtime); Duration: 90 days Active Levothyroxine Sodium 125 MCG 1 tab(s) or ally once a day; Duration: 90 days Active Lisinopril 5 mg 1 tablet Orally Once a day; Duration: 90 days Active GLUCOMETER DIRECTED TEST QD 09/06/2019 Active Fish Oil 1000 MG 1 cap(s) orally bid Active Pantoprazole Sodium 40 MG 1 tab(s) orall y once a day; Duration: 30 day(s) Active Bisoprolol Fumarate 5 MG 1/2 tab(s) oral ly once a day Active Aspirin 81 MG 1 TAB(S) ORALLY ONCE A DAY Active Vital Signs Blood pressure systolic 110 mm Hg 06/09/20 24 Blood pressure diastolic 60 mm Hg 024 Heart Rate 78 /min 06/09/2024 Height 70 in 06/09/2024 Weight 246.0 lbs 06/09/2024 BMI 35.29 kg/m2 06/09/2024 Encounters Encounter Location Date Provider Diagnosis [facility] [address] [place] [id number] 06/09/2024 Padmini Jones Sinusitis J32 .9 Assessments Encounter Date Diagnosis (ICD Code) Assessment Notes Treatment Notes Treatment Clinical Notes Section Notes 06/09/2024 Sinusitis (ICD-10 - J32.9) continue with OTC Coricidin, fluids, rest, supportive measures for fever/symptom relief Plan Of Treatment Medication Medication Name Sig Start Date Stop Date Notes Cefuroxime Axetil 500 MG 1 tablet Orally every 12 hrs; Duration: 7 day(s) 06/09/2024 Treatment Notes Assessment Notes Sinusitis continue with OTC Co ricidin, fluids, rest, supportive measures for fever/symptom relief Next Appt Details Follow Up: prn, Reason: Progress Notes * ANNELIESE WICK DDOB:1965 (59 yo M)Acc No.[id number]:06/09/2024 Progress Notes Patient: ANNELIESE CASTILLO Provider: YOLANDA Jeffrey :1965 A ge:58 Y S ex:Male Date:06/09/2024 Address:[address] [place], [id number] Pcp:Vijay Vinson Subjective: * Chief Complaints: * 1 . Cough & congestion. * HPI: E NT/respiratory: 58 year old male presents with c/o sore throat P t sts just when he wakes up in the morning, but sts as the day goes on it goes away. c/o cough. c/o nasal congestion r unny nose. Pt sts he has been taking some otc medications and sts it has not helped. c/o rhinorrhea. c/o facial pain/pressure. Denies : Fever. D enies : ear pain. D enies : headache.?Denies : chest congestion. D enies : smoking. D enies : dizziness. D enies : body aches. * ROS: D ERMATOLOGY: no R suzy. n o H trevon. G ASTROENTEROLOGY: no N ausea. n o V omiting. n o D iarrhea.? U ROLOGY: no D ifficulty urinating. n o B lood in urine. * Medical History: H ypothroidism, Hyperlipidemia, Hyperglycemia, Coronary Artery Disease, Myocardial Infarction, October 2011, s/p stent placement, Former smoker, 30 pack year history, quit 2011, Type 2 DM, Ischemic cardiomyopathy. * Surgical History: T onsillectomy , wrist cyst removal , Heart Attack- Stent 12/01/11, cardiac stents X 2 10/2019. * Hospitalization/Major Diagno stic Procedure: H eart Attack- [place] 12/01/11. * Family History: F ather: . M other: alive, hypothyroid. 1 son(s) , 1 daughter(s) . . Positve for heart disease and HTN. * Social History: C URRENT TOBACCO USE S moking Status: Patient does NOT smoke. C affeine: yes, frequency:3xd. Home smoke detector use: yes. Marital Status: , , remarried 11/04/2005. Past smoking status: yes, STOPPED smoking 2006, but resumed fall 2007, quit again in October 2011. Alcohol: Yes, Type: Beer, mixed drinks , Frequency:occasionally. Sexually active: yes. * Medications: T aking Bisoprolol Fumarate 5 MG Tablet 1/2 tab(s) orally once a day , Taking Pantoprazole Sodium 40 MG Tablet Delayed Release 1 tab(s) orally once a day , Taking Fish Oil 1000 MG Capsule 1 cap(s) orally bid , Taking GLUCOMETER DIRECTED TEST QD , Taking Aspirin 81 MG ENTERIC COATED TABLET 1 TAB(S) ORALLY ONCE A DAY , Taking Lisinopril 5 mg Tablet 1 tablet Orally Once a day , Taking Levothyroxine Sodium 125 MCG Tablet 1 tab(s) orally once a day , Taking Atorvastatin Calcium 40 MG Tablet 1 tab(s) orally once a day (at bedtime) , Taking Xigduo XR 10-1000 MG Tablet Extended Release 24 Hour 1 tab(s) orally once a day (in the morning) , Medication List reviewed and reconciled with the patient * Allergies: N .K.D.A. Objective: * Vitals: W t:246.0, Temp:98.5, BP:110/60, HR:78, Nurse:MARTIR, Ht: 70, BMI:35.29. * Examination: E NT/Respiratory: General Appearance: well nourished and hydrated, NAD, alert. E yes: bilateral mildly injected; bilateral proptosis. E ars: auditory canals normal bilaterally, tympanic membranes normal bilaterally. N ose : nares patent. Sinuses : non tender bilaterally. O ral cavity : erythema without exudate on pharynx. N oriana : supple, no cervical lymphadenopathy. H eart : RRR. L ungs:? CTAB A&P. Assessment: * Assessment: 1. S inusitis - J32.9 (Primary) Plan: * Treatment: * Labs: * L ab: CBC Fingerstick (in house) (Collection Date & Time - 06/09/2024) Value Reference Range w bc 8.9 3.5 - 10 * l ym 40.8 15 - 50 * m id 7.5 2 - 15 * g ran 51.7 35 - 80 * r bc 5.39 3.5 - 5.5 * h gb 15.3 11.5 - 16.5 * h ct 44.2 35 - 55 * m cv 82.0 75 - 100 * m ch 28.5 25 - 35 * m chc 34.7 31 - 38 * p lat 214 100 - 400 * Joy Kim 06/09/2024 4:02: 38 PM > Provider reviewed results while patient in office.Ari Jonesine 06/09/2024 7:43:05 PM > ?Lab: Covid test (in house) (Collection Date & Time - 06/09/2024)?neg* Value Reference Range R esult: neg * oJy Kim 06/09/2024 4:20: 51 PM > Provider reviewed results while patient in office.Ari Jonesine 06/09/2024 7:43:19 PM > ?Lab: Influenza Screen (in house) (Collection Date & Time - 06/09/2024)?neg * Value Reference Range r esults neg * Joy Kim 06/09/2024 4:20: 34 PM > Provider reviewed results while patient in office.Ari Jonesine 06/09/2024 7:43:34 PM > * Procedure Codes: 3 6416 CAPILLARY BLOOD DRAW, 82097 CBC WITH AUTO DIFF, 25991 Flu Test- Nasal Swab, Modifiers: QW , 61811 COVID TEST IN HOUSE, Modifiers: QW * Follow Up: p rn * Images: Billing Information: * Visit Code: 94422 Office Visit, Est Pt., Level 3. * Procedure Codes: 06541 CAPILLARY BLOOD DRAW. 39574 CBC WITH AUTO DIFF. 04598 Flu Test- Nasal Swab. Modifiers: QW 45644 COVID TEST IN HOUSE. Modifiers: QW * Electronic signature of Nat misaeldilip Jones APRN on 02/14/2025 at 07:49 AM EDT Sign off status: Pending * Provider: YOLANDA Jeffrey Date: 1 08/10/2023 Generated for Margaret miles/Tamanna/eTwilliamsmitting on: 0 02/14/2025 07:49 AM EDT History and Physical Notes * HPI (History of Present Illness) Category Sub-Category Detail Notes Category Not es ENT/respiratory sore throat Pt sts just when he wakes up in the morning, but sts as the day goes on it goes away facial pain/pressure ear pain cough Fever headache chest congestion rhinorrhea nasal congestion runny nose. Pt sts h e has been taking some otc medications and sts it has not helped smoking dizziness body aches Examination Category Sub-Category Detail Notes Category Not es ENT/Respiratory Oral cavity : erythema without exudate on pharynx Sinuses : non tender bilateral ly Ears: auditory canals norm al bilaterally, tympanic membranes normal bilaterally Neck : supple, no cervical lymphadenopathy Heart : RRR Lungs: CTAB A&P General Appearance: well nourished and h ydrated, NAD, alert Nose : nares patent Eyes: bilateral mildly inj ected; bilateral proptosis
--- OUTSIDE RECORDS SUMMARY | 2024-07-31 12:00 | XMS_ITS ---
[facility] Address [address] [place] [phone] Care Team Providers Care [employer] Information Clerk Name Role Phone Karel Vijay Primary Care Provider Narciso Joyce Unavailable [phone] Allergies No Known Allergies Results Component Value Reference Range Notes CBC Fingerstick (in house) Reviewed date:07/31/2024 05:15:15 PM Interpretation: Performing Lab: Notes/Report: wbc 5.9 3.5 - 10 lym 39.2 15 - 50 mid 7.4 2 - 15 gran 53.4 35 - 80 rbc 5.06 3.5 - 5.5 hgb 14.5 11.5 - 16.5 hct 41.5 35 - 55 mcv 82.1 75 - 100 mch 28.7 25 - 35 mchc 34.9 31 - 38 plat 159 100 - 400 REASON FOR VISIT poss sinus infection Medications Medication SIG (Take, Route, Frequency, Duration) Notes Start Date End Date Status Aspirin 81 MG 1 TAB(S) ORALLY ONCE A DAY Active Bisoprolol Fumarate 5 MG 1/2 tab(s) oral ly once a day Active Pantoprazole Sodium 40 MG 1 tab(s) orall y once a day; Duration: 30 day(s) Active Fish Oil 1000 MG 1 cap(s) orally bid Active GLUCOMETER DIRECTED TEST QD 09/06/2019 Active Doxycycline Hyclate 100 MG 1 tablet Oral ly Two times a day; Duration: 10 day(s) 07/31/2024 Active Atorvastatin Calcium 40 MG 1 tab(s) oral ly once a day (at bedtime); Duration: 90 days Active Xigduo XR 10-1000 MG 1 tab(s) orally onc e a day (in the morning); Duration: 90 days Active Cefuroxime Axetil 500 MG 1 tablet Orally every 12 hrs; Duration: 7 day(s) 06/09/2024 Active Lisinopril 5 mg 1 tablet Orally Once a day; Duration: 90 days Active Levothyroxine Sodium 125 MCG 1 tab(s) or ally once a day; Duration: 90 days Active Vital Signs Blood pressure systolic 112 mm Hg 07/31/19 25 Blood pressure diastolic 62 mm Hg 025 Heart Rate 85 /min 07/31/2024 Height 70 in 07/31/2024 Weight 245 lbs 07/31/2024 BMI 35.15 kg/m2 07/31/2024 Encounters Encounter Location Date Provider Diagnosis [facility] [address] [place] [phone] 07/31/2024 Narciso Joyce URI (upper respirato ry infection) J06.9 Assessments Encounter Date Diagnosis (ICD Code) Assessment Notes Treatment Notes Treatment Clinical Notes Section Notes 07/31/2024 URI (upper respiratory infection) (ICD-10 - J06.9) Plan Of Treatment Medication Medication Name Sig Start Date Stop Date Notes Doxycycline Hyclate 100 MG 1 tablet Oral ly Two times a day; Duration: 10 day(s) 07/31/2024 Next Appt Details Follow Up: prn, Reason: Progress Notes * ANNELIESE WICK DDOB:1965 (59 yo M)Acc No.[id number]:07/31/2024 Progress Notes Patient: Reginaldo ANNELIESE LUNDBERG Provider: Narciso Joyce M.D. :1965 A ge:58 Y S ex:Male Date:07/31/2024 Address:[facility] [place], [id number] Pcp:Vijay Vinson Subjective: * Chief Complaints: * 1 . Poss sinus infection. * HPI: E NT/respiratory: 58 year old male presents with c/o cough P t presents today with c/o cough, runny nose, post nasal drainage, watery eyes. Pt sts that he had COVID previously but does not really feel bad otherwise. Pt sts that his cough has clear sputum production. c/o rhinorrhea. c/o facial pain/pressure. Denies : Fever. D enies : body aches. He is leaving to go out of town this weekend. * ROS: D ERMATOLOGY: no R suzy. [...] Hospitalization/Major Diagno stic Procedure: H eart Attack- [place] 12/01/11. * Family History: F ather: . [...] TAB(S) ORALLY ONCE A DAY , Taking Levothyroxine Sodium 125 MCG Tablet 1 tab(s) orally once a day , Taking Atorvastatin Calcium 40 MG Tablet 1 tab(s) orally once a day (at bedtime) , Taking Xigduo XR 10-1000 MG Tablet Extended Release 24 Hour 1 tab(s) orally once a day (in the morning) , Taking Cefuroxime Axetil 500 MG Tablet 1 tablet Orally every 12 hrs , Taking Lisinopril 5 mg Tablet 1 tablet Orally Once a day , Medication List reviewed and reconciled with the patient * Allergies: N .K.D.A. Objective: * Vitals: W t:245, Temp:98.2, BP:112/62, HR:85, Nurse:YOLA, Ht: 70, BMI:35.15. * Examination: E NT/Respiratory: General Appearance: N AD. E yes: M ildly injected.?Nose : congested. O ral cavity : n o erythema or exudate seen on pharynx. H eart : R RR, normal S1 S2, no murmurs. L ungs: c lear to auscultation bilaterally. ? Assessment: * Assessment: 1. U RI (upper respiratory infection) - J06.9 (Primary) Plan: * Treatment: Value Reference Range w bc 5.9 3.5 - 10 * l ym 39.2 15 - 50 * m id 7.4 2 - 15 * g ran 53.4 35 - 80 * r bc 5.06 3.5 - 5.5 * h gb 14.5 11.5 - 16.5 * h ct 41.5 35 - 55 * m cv 82.1 75 - 100 * m ch 28.7 25 - 35 * m chc 34.9 31 - 38 * p lat 159 100 - 400 * Kaylan Daly 07/31/2024 4:19 :07 PM > results reviewed w/ pt in office * Procedure Codes: 3 6416 CAPILLARY BLOOD DRAW, 12825 CBC WITH AUTO DIFF * Follow Up: p rn * Images: Billing Information: * Visit Code: 58372 Office Visit, Est Pt., Level 3. * Procedure Codes: 01695 CAPILLARY BLOOD DRAW. 24316 CBC WITH AUTO DIFF. * Electronic signature of Narciso Joyce MD on 02/14/2025 at 07:48 AM EDT Sign off status: Pending * Provider: Narciso Joyce M.D. Date: 0 07/31/2024 Generated for Margaret miles/Tamanna/eTwilliamsmitting on: 0 02/14/2025 07:48 AM EDT History and Physical Notes * HPI (History of Present Illness) Category Sub-Category Detail Notes Category Not es ENT/respiratory facial pain/pressure He i s leaving to go out of town this weekend. cough Pt presents today wi th c/o cough, runny nose, post nasal drainage, watery eyes. Pt sts that he had COVID previously but does not really feel bad otherwise. Pt sts that his cough has clear sputum production Fever rhinorrhea body aches Examination Category Sub-Category Detail Notes Category Not es ENT/Respiratory Oral cavity : no erythema or exudate s een on pharynx Heart : RRR, normal S1 S2, n o murmurs Lungs: clear to auscultatio n bilaterally General Appearance: NAD Nose : congested Eyes: Mildly injected
--- OUTSIDE RECORDS SUMMARY | 2025-02-12 11:00 | XMS_ITS ---
[facility] Address [address] [place] [id number] Care Team Providers Care Clinical Coder Name Role Phone HarroldVijay bender Primary Care Provider [phone] Narciso Joyce Unavailable [phone] Allergies No Known Allergies REASON FOR VISIT check up 6 months with labs- pt must have labs, due for tdap, shingrix, prevnar, due for colon cancer screening and LDCT, due for diabetic eye exam Medications Medication SIG (Take, Route, Frequency, Duration) Notes Start Date End Date Status Fish Oil 1000 MG 1 cap(s) orally bid Active GLUCOMETER DIRECTED TEST QD 09/06/2019 Active Aspirin 81 MG 1 TAB(S) ORALLY ONCE A DAY Active Bisoprolol Fumarate 5 MG 1/2 tab(s) oral ly once a day Active Pantoprazole Sodium 40 MG 1 tab(s) orall y once a day; Duration: 30 day(s) Not-Taking Xigduo XR 10-1000 MG 1 tab(s) orally onc e a day (in the morning); Duration: 90 days Active Levothyroxine Sodium 125 MCG 1 tab(s) orally once a day Active Lisinopril 5 mg 1 tablet Orally Once a day; Duration: 90 days Active Atorvastatin Calcium 40 MG 1 tab(s) oral ly once a day (at bedtime); Duration: 90 days Active Vital Signs Blood pressure systolic 112 mm Hg 02/13/20 25 Blood pressure diastolic 60 mm Hg 025 Heart Rate 83 /min 02/12/2025 Height 70 in 02/12/2025 Weight 248.6 lbs 02/12/2025 BMI 35.67 kg/m2 02/12/2025 Encounters Encounter Location Date [facility] [address] [place] [phone] 02/12/2025 R Luis Joyce HTN (hypertension), benign I10 ; Atherosclerosis of [place] coronary artery of [place] heart without angina pectoris I25.10 ; Type 2 diabetes mellitus without complication, without long-term current use of insulin E11.9 ; Dyslipidemia E78.5 ; Acquired hypothyroidism E03.9 ; Colon cancer screening Z12.11 and Prostate cancer screening Z12.5 Assessments Encounter Date Diagnosis (ICD Code) Assessment Notes Treatment Notes Treatment Clinical Notes Section Notes 02/12/2025 HTN (hypertension), benign (ICD-10 - I10) 02/12/2025 Atherosclerosis of [place] coronary artery of [place] heart without angina pectoris (ICD-10 - I25.10) 02/12/2025 Type 2 diabetes mellitus without complication, without long-term current use of insulin (ICD-10 - E11.9) 02/12/2025 Dyslipidemia (ICD-10 - E78.5) 02/12/2025 Acquired hypothyroidism (ICD-10 - E03.9) 02/12/2025 Colon cancer screening (ICD-10 - Z12.11) 02/12/2025 Prostate cancer screening (ICD-10 - Z12.5) Plan Of Treatment Medication Medication Name Sig Start Date Stop Date Notes Bisoprolol Fumarate 5 MG 1/2 tab(s) orally once a day Xigduo XR 10-1000 MG 1 tab(s) orally onc e a day (in the morning); Duration: 90 days Levothyroxine Sodium 125 MCG 1 tab(s) orally once a day Lisinopril 5 mg 1 tablet Orally Once a day; Duration: 90 days Atorvastatin Calcium 40 MG 1 tab(s) oral ly once a day (at bedtime); Duration: 90 days Pending Test Test Name Order Date Cologuard 02/12/2025 H-TSH 02/12/2025 H-Microalbumine/Creatinine 02/12/2025 H-Lipid Panel 02/12/2025 H-CMP 02/12/2025 H-Glycohemoglobin A1C 02/12/2025 H-PSA 02/12/2025 Next Appt Details Follow Up: 6 Months, Reason: Progress Notes * ANNELIESE WICK DDOB:1965 (59 yo M)Acc No.[id number]:02/12/2025 Progress Notes Patient: ANNELIESE CASTILLO Provider: Narciso Joyce M.D. :1965 A ge:59 Y S ex:Male Date:02/12/2025 Address:[facility] [place], [id number] Pcp:Vijay Vinson Subjective: * Chief Complaints: * 1 . Check up 6 months with labs- pt must have labs. 2. Due for tdap, shingrix, prevnar. 3. due for colon cancer screening and LDCT. 4. Due for diabetic eye exam. * HPI: H PI: 59 year old male presents with c/o Patient is here today for?Pt is here today for a 6 month check and labs. * ROS: D ERMATOLOGY: no R suzy. [...] Hospitalization/Major Diagno stic Procedure: H eart Attack- [place] 12/01/11. * Family History: F ather: . [...] tablet Orally Once a day , Taking Atorvastatin Calcium 40 MG Tablet 1 tab(s) orally once a day (at bedtime) , Taking Xigduo XR 10-1000 MG Tablet Extended Release 24 Hour 1 tab(s) orally once a day (in the morning) , Taking Levothyroxine Sodium 125 MCG Tablet 1 tab(s) orally once a day , Not-Taking Pantoprazole Sodium 40 MG Tablet Delayed Release 1 tab(s) orally once a day , Medication List reviewed and reconciled with the patient * Allergies: N .K.D.A. Objective: * Vitals: W t: 248.6, Temp: 98.4, BP: 112/60, HR: 83, Nurse: [facility], Ht: 70, BMI:35.67. * Examination: C ardiology: General Appearance: p leasant, NAD. H EENT: u nremarkable. C arotid upstroke: n ormal, no bruits. H eart sounds: R RR, normal S1, S2.?Murmur, click , gallop: n one. L ungs: c lear, no rales or wheezes. A bdomen: positive BS, soft, nontender. E xtremities: n o leg edema. Assessment: * Assessment: 1. H TN (hypertension), benign - I10 (Primary) 2 . A therosclerosis of [place] coronary artery of [place] heart without angina pectoris - I25.10 3 . T ype 2 diabetes mellitus without complication, without long-term current use of insulin - E11.9 4. D yslipidemia - E78.5 5 . A cquired hypothyroidism - E03.9 ? 6 . C olon cancer screening - Z12.11 7 . P rostate cancer screening - Z12.5 Plan: * Treatment: 2. T ype 2 diabetes mellitus without complication, without long-term current use of insulin Refill Xigduo XR Tablet Extended Release 24 Hour, 10-1000 MG, 1 tab(s), orally, once a day (in the morning), 90 days, 90, Refills 1. 3. D yslipidemia Refill Atorvastatin Calcium Tablet, 40 MG, 1 tab(s), orally, once a day (at bedtime), 90 days, 90, Refills 1. 4. A cquired hypothyroidism Refill Levothyroxine Sodium Tablet, 125 MCG, 1 tab(s), orally, once a day, 90, Refills 1. ? 5. C olon cancer screening L AB: Cologuard * Labs: * L ab: H-Microalbumine/Creatinine L ab: H-Lipid Panel L ab: H-PSA L ab: H-CMP L ab: H-Glycohemoglobin A1C L ab: H-TSH * Follow Up: 6 Months * Images: Billing Information: * Visit Code: 14065 Office Visit, Est Pt., Level 4. * Procedure Codes: * Electronic signature of Narciso Joyce MD on 02/14/2025 at 07:48 AM EDT Sign off status: Pending * Provider: Narciso Joyce M.D. Date: 0 02/12/2025 Generated for Margaret miles/Tamanna/Eddiitting on: 0 02/14/2025 07:48 AM EDT History and Physical Notes * HPI (History of Present Illness) Category Sub-Category Detail Notes Category Not es HPI Patient is here today for Pt is here today for a 6 month check and labs Examination Category Sub-Category Detail Notes Category Not es Cardiology Lungs: clear, no rales or wheezes HEENT: unremarkable Heart sounds: RRR, normal S1, S2 Abdomen: positive BS, soft, n ontender Carotid upstroke: normal, no bruits Extremities: no leg edema Murmur, click , gallop: none General Appearance: pleasant, NAD
--- OUTSIDE RECORDS SUMMARY | 2025-02-14 07:48 | XMS_ITS | Clinical Summary ---
Author Organization [facility] Address [address] [place] [address] Care Team Providers Care Life Science Teacher Name Role Phone Unavailable Primary Care Provider Unavailabl e Social History Tobacco Use Types Packs/Day Years Used Date Smoking Tobacco: Never Assessed Sex and Gender Information Value Date Recorded Sex Assigned at Not on file Legal Sex Male 8:43 PM EDT Gender Identity Not on file Sexual Orientation Not on file Plan of Treatment Health Maintenance Due Date Last Done Comments [facility]-Depression Screening 1965 [facility]-Infant/Child/Adol SDOH Screenings 1965 [facility]- SDOH Screenings 12/22/1983 [facility]-Adult SDOH Screenings 12/22/1983 [facility]-DTaP,Tdap,and Td Vaccine s (1 - Tdap) 1984 [facility]-Hepatitis B Vaccines (1 of 3 - 19+ 3-dose series) 1984 CT Colonography 2010 Colonoscopy 2010 FIT-DNA 2010 FIT 2010 FOBT 2010 Sigmoidoscopy 2010 [facility]-Colorectal Cancer Screening 2010 [facility]-Pneumococcal Vaccine: 50 + Years (1 of 1 - PCV) 12/22/2015 [facility]-Zoster Vaccines (1 of 2) 12/22/2015 [id number] Vaccine (2 - 20 24-25 season) 2024 01/13/2021 [facility]-Influenza Vaccine (#1) 2025 HPV Vaccines Aged Out No longer eligi ble based on patient's age to complete this topic [facility]-HIB Vaccines Aged Out No longer e ligible based on patient's age to complete this topic [facility]-Hepatitis A Vaccines Aged Out No longer eligible based on patient's age to complete this topic [facility]-IPV Vaccines Aged Out No longer e ligible based on patient's age to complete this topic [facility]-Rotavirus Vaccines Aged Out No lo nger eligible based on patient's age to complete this topic Insurance
--- OUTSIDE RECORDS SUMMARY | 2025-02-14 07:49 | XMS_ITS | Patient Health Record ---
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 Y TRIG 297 30-150 mg/dl CHOL 138 140-200 mg/dl DLDL 61.04 100-129 mg/dL VLDL 59 0-40 mg/dL HDL 36 40-60 mg/dl CHLHDL 3.8 1-3.5 H-CMP Reviewed date:02/25/2024 08:45:07 PM Interpretation:cl 108, bun 21, gluc 129, bili 1.4 Performing Lab: Notes/Report: NA 138 136-145 mmol/L K 4.2 3.5-5.1 mmoL/L CL 108 98-107 mmol/L CO2 24 22.0-30.0 mmol/L GAP 10.2 5-15 mEq/L BUN 21 9-20 mg/dl CREATT 1.00 0.66-1.25 mg/dl GFRAA 93 >60 ML/MIN EGFR 77 >60 ml/min GLU 129 74-100 mg/dl CA 9.4 8.4-10.2 mg/dl BILIT 1.4 0.2-1.3 mg/dl AST 29 17-59 U/L ALT 24 12-78 U/L TP 6.9 6.3-8.2 g/dl ALB 4.2 3.5-5.0 g/dl GLOB 2.7 1.3-3.2 g/dL AGRATIO 1.6 1.1-1.8 ALP 105 38-126 U/L H-Glycohemoglobin A1C Reviewed date:02/25/2024 08:45:07 PM Interpretation:6.4 Performing Lab: Notes/Report: HGBA1C 6.4 4.0-6.0 % < 6% Non-Diabetic Level < 7% Controlled Diabetic Level > 8% Poorly Controlled Diabetic Level Influenza Screen (in house) Reviewed date:06/09/2024 07:43:35 [...] Interpretation:neg Performing Lab: Notes/Report: neg Result: neg Medications Medication SIG (Take, Route, Frequency, Duration) Notes Start Date End Date Status Fish Oil 1000 MG 1 cap(s) orally bid Active GLUCOMETER DIRECTED TEST QD 09/06/2019 Active Aspirin 81 MG 1 TAB(S) ORALLY ONCE A DAY Active Bisoprolol Fumarate 5 MG 1/2 tab(s) oral ly once a day Active Xigduo XR 10-1000 MG 1 tab(s) orally onc e a day (in the morning); Duration: 90 days Active Levothyroxine Sodium 125 MCG 1 tab(s) orally once a day Active Pantoprazole Sodium 40 MG 1 tab(s) orall y once a day; Duration: 30 day(s) Not-Taking Lisinopril 5 mg 1 tablet Orally Once a day; Duration: 90 days Active Atorvastatin Calcium 40 MG 1 tab(s) oral ly once a day (at bedtime); Duration: 90 days Active Immunizations Vaccine Route Administration Date Status Comme nts xFluzone Intradermal (18-64yrs)-trivalent ID Intradermal 04/02/2014 Administered COVID 19 Ravin Unknown 01/13/2021 Administered Problems Problem Type SNOMED Code ICD Code Onset Dates Problem Status W/U Status Risk Notes Problem Essential hypertension (17211042) HTN (hypertension), benign (I10) Active confirmed Problem History of circulatory system disease (943410367) History of ASCVD (Z86.79) Active confirmed Problem Restless legs syndrome (75733463) Restless leg syndrome (G25.81) Active confirmed Problem Mixed hyperlipidemia (496907115) Mixed hyperlipidemia (E78.2) Active confirmed Problem Ischemic cardiomyopathy (210766060) Ischemic cardiomyopathy (I25.5) Active confirmed Problem Atherosclerosis of coronary artery without angina pectoris (645526899454900) Atherosclerosis of [place] coronary artery of [place] heart without angina pectoris (I25.10) Active confirmed Problem Acquired hypothyroidism (322809983) Acquired hypothyroidism (E03.9) Active confirmed Problem Dyslipidemia (920889792) Dyslipidemia (E78.5) Active confirmed Problem Type II diabetes mellitus without complication (110426938) Type 2 diabetes mellitus without complication, without long-term current use of insulin (E11.9) Active confirmed Problem Localized, primary osteoarthritis of the shoulder region (539036901) 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) Active confirmed Problem Heart disease (97369715) LV dysfunction (I51.9) Active confirmed Vital Signs Heart Rate 83 /min 02/12/2025 Blood pressure diastolic 60 mm Hg 02/12/2025 Height 70 in 02/12/2025 Blood pressure systolic 112 mm Hg 02/12/2025 Weight 248.6 lbs 02/12/2025 BMI 35.67 kg/m2 02/12/2025 Encounters Encounter Location Date Provider Diagnosis [facility] [address] [place] [address] [place] [id number] 06/09/2024 Padmini Jones Sinusitis J32.9 [facility] [place] [id number] 07/31/2024 Narciso Joyce URI (upper respirato ry infection) J06.9 [facility] [address] [place] [address] [place] [id number] 02/12/2025 Narciso Joyce HTN (hypertension), benign I10 ; Atherosclerosis of [place] coronary artery of [place] heart without angina pectoris I25.10 ; Type 2 diabetes mellitus without complication, without long-term current use of insulin E11.9 ; Dyslipidemia E78.5 ; Acquired hypothyroidism E03.9 ; Colon cancer screening Z12.11 and Prostate cancer screening Z12.5 [facility] [address] [place] [address] [place] [id number] 02/25/2024 Vijay [place] [facility] [place] [id number] 01/21/2025 Narciso Joyce Assessments Encounter Date Diagnosis (ICD Code) Assessment Notes Treatment Notes Treatment Clinical Notes Section Notes 07/31/2024 URI (upper respiratory infection) (ICD-10 - J06.9) 02/12/2025 HTN (hypertension), benign (ICD-10 - I10) 02/12/2025 Atherosclerosis of [place] coronary artery of [place] heart without angina pectoris (ICD-10 - I25.10) 06/09/2024 Sinusitis (ICD-10 - J32.9) continue with OTC Coricidin, fluids, rest, supportive measures for fever/symptom relief 02/12/2025 Type 2 diabetes mellitus without complication, without long-term current use of insulin (ICD-10 - E11.9) 02/12/2025 Dyslipidemia (ICD-10 - E78.5) 02/12/2025 Acquired hypothyroidism (ICD-10 - E03.9) 02/12/2025 Colon cancer screening (ICD-10 - Z12.11) 02/12/2025 Prostate cancer screening (ICD-10 - Z12.5) Plan Of Treatment Pending Test Test Name Order Date X ray : Foot, right 02/12/2024 Cologuard 02/12/2025 H-TSH 02/12/2025 H-Microalbumine/Creatinine 02/12/2025 H-Lipid Panel 02/12/2025 H-CMP 02/12/2025 H-Glycohemoglobin A1C 02/12/2025 H-PSA 02/12/2025 P-Microalbumin/Creatinine, Random Urine Sample 02/12/2024 Insurance Providers Payer Name Payer Address Payer Phone Subscriber Number Group Number Insured Name Patient Relationship to Insured Coverage Start Date Coverage End Date [employer] [address] [place] [address] [id number] Self - patient is the insured Medications Administered Medication Instructions Date of Administration Dosage Notes Dexamethasone 11/07/2013 Medical (General) History Medical History History ICD Code Hypothroidism Hyperlipidemia Hyperglycemia Coronary Artery Disease Myocardial Infarction, October 2011, s/p ascencion nt placement Former smoker, 30 pack year history, julianna t 2011 Type 2 DM Ischemic cardiomyopathy Surgical History Surgery Date(Month/Year) Tonsillectomy wrist cyst removal Heart Attack- Stent 12/01/11 cardiac stents X 2 10/2019 Hospitalization History Reason Date(Month/Year) Heart Attack- [facility] 12/01/11
[2025-02-14 08:06] LABS: Microscopic, Urine URINE MICROSCOPIC (MICROSCOPIC)
[2025-02-14 08:36] LABS: Bilirubin,Urine Negative (Negative); Color,Urine YELLOW (Yellow); Glucose,Urine (UA) 3+ (Negative); Ketones,Urine Negative (Negative); Leukocyte Esterase,Urine Negative (Negative); PH,Urine 6.0 (5.0-8.5); Protein,Urine Negative (Negative); Specific Gravity, Urine 1.015 (1.005-1.030); Urobilinogen,Urine 2.0 EU/dl (0.2)
[2025-02-14 08:39] LABS: Albumin Level 4.6 g/dl (3.5-5.0); Chloride 106 mmol/L (98-107)
[2025-02-14 08:40] LABS: Potassium 4.8 mmoL/L (3.5-5.1); Sodium 136 mmol/L (136-145)
[2025-02-14 08:42] LABS: Alanine Aminotransferase 24 U/L (12-78); Albumin/Globulin Ratio 1.9 (1.1-1.8); Alkaline Phosphatase 117 U/L (38-126); Anion Gap 10.8 mEq/L (5-15); Aspartate Amino Transferase 35 U/L (17-59); Bilirubin,Total 1.3 mg/dl (0.2-1.3); Blood Urea Nitrogen 19 mg/dl (9-20); Carbon Dioxide 24 mmol/L (22.0-30.0); Creatinine,Serum 1.00 mg/dl (0.66-1.25); Estimated Glomerular Filt Rate 76 ml/min (>60); GFR (African American) 93 ML/MIN (>60); Globulin 2.4 g/dL (1.3-3.2); Total Protein,Serum 7.0 g/dl (6.3-8.2)
[2025-02-14 08:43] LABS: Calcium 9.2 mg/dl (8.4-10.2); Cholesterol 125 mg/dl (140-200); Glucose 150 mg/dl (74-100); HDL Cholesterol 28 mg/dl (40-60); Triglycerides 387 mg/dl (30-150)
[2025-02-14 08:45] LABS: Bacteria,Urine Trace /lpf; Squamous Epithelial Cell,Urine Occasional #/hpf (0-5)
[2025-02-14 09:12] LABS: Thyroid Stimulating Hormone 1.82 uIU/mL (0.465-4.68)
[2025-02-14 09:40] LABS: Hemoglobin A1C 6.8 % (4.0-6.0)
== END 2025-02-14 23:59 | disposition home or self-care (01) ==
LOC: LAB 07:47
PROVIDERS: PCP Family Medicine; Visit Provider Family Medicine
DX: E78.5 Hyperlipidemia, unspecified (principal); E03.9 Hypothyroidism, unspecified; E11.9 Type 2 diabetes mellitus without complications; Z12.5 Encounter for screening for malignant neoplasm of prostate
CPT/HCPCS: 36415; 80053; 80061; 81001; 83036; 84443; G0103